=== PATIENT | male | born 1985 | race Caucasian/White ===

== ENCOUNTER 2017-05-15 08:11 | Emergency (ER) | payer BC ==
[2017-05-15 08:36] VITALS: BP 127/77
--- NOTE | 2017-05-15 08:47 | UC ---
Respiratory Complaint HPI - HPI Summary HPI Summary: cough x 2 days cough is dry , + nasal congestion, pnd no sore throat, no fever, no chills - History of Current Complaint Chief Complaint: UCRespiratory Stated Complaint: DIZZINESS,CHEST JIM,SINUSES Time Seen by Provider: 05/15/17 08:35 Hx Obtained From: Patient Onset/Duration: Gradual Onset, Lasting Days - 2, Still Present Timing: Constant Severity Initially: Moderate Severity Currently: Moderate Pain Intensity: 0 Character: Cough: Nonproductive Aggravating Factors: Exertion, Deep Breaths Alleviating Factors: Nothing Associated Signs And Symptoms: Positive: Wheezing, URI, Nasal Congestion. Negative: Fever, Chills, Pleuritic Chest Pain, Hemoptysis, Dizziness, Calf Pain , Calf Swelling, Hoarseness, Sinus Discomfort - Allergies/Home Medications Allergies/Adverse Reactions: Allergies Allergy/AdvReac Type Severity Reaction Status Date / Time No Known Allergies Allergy Verified 05/15/17 08:36 Home Medications: Home Medications Dm/Acetaminophen/Doxylamine [Night Cold-Flu Relief Liq Gel] 1 each PO DAILY [History Confirmed 05/15/17] PMH/Surg Hx/FS Hx/Imm Hx Previously Healthy: Yes - Surgical History Surgical History: None - Family History Known Family History: Negative: Diabetes - Social History Alcohol Use: Weekly Substance Use Type: None Smoking Status (MU): Heavy Every Day Tobacco Smoker Type: Cigarettes Amount Used/How Often: 1/2-3/4 PPD Length of Time of Smoking/Using Tobacco: 16 Years Have You Smoked in the Last Year: Yes - Immunization History Most Recent Influenza Vaccination: Not the 2015/2016 Season Review of Systems Constitutional: Negative Skin: Negative Eyes: Negative ENT: Nasal Discharge Respiratory: Cough Cardiovascular: Negative Gastrointestinal: Negative Genitourinary: Negative Neurovascular: Negative Musculoskeletal: Negative Is Patient Immunocompromised?: No All Other Systems Reviewed And Are Negative: Yes Physical Exam Triage Information Reviewed: Yes Appearance: Well-Appearing, No Pain Distress, Well-Nourished Vital Signs: Initial Vital Signs Temp 98.9 F 05/15/17 08:33 Pulse 92 05/15/17 08:33 Resp 16 05/15/17 08:33 BP 127/77 05/15/17 08:33 Pulse Ox 100 05/15/17 08:33 Eyes: Positive: Conjunctiva Clear ENT: Positive: Normal ENT inspection, Hearing grossly normal, Pharynx normal, Nasal drainage Neck: Positive: Supple, Nontender, No Lymphadenopathy Respiratory: Positive: Chest non-tender, Lungs clear, Normal breath sounds Cardiovascular: Positive: RRR, No Murmur, Pulses Normal Skin Exam: Normal UC Diagnostic Evaluation - Laboratory O2 Sat by Pulse Oximetry: 100 Respiratory Course/Dx - Differential Dx/Diagnosis Provider Diagnoses: viral illness Discharge - Discharge Plan Condition: Stable Disposition: HOME Patient Education Materials: Viral Syndrome (ED) Forms: *Work Release Referrals: No Primary Care Phys,NOPCP [Primary Care Provider] - If Needed
== END 2017-05-15 08:46 | disposition home or self-care (01) ==
LOC: UCCORT 08:11
DX: B34.9 Viral infection, unspecified (principal); F17.210 Nicotine dependence, cigarettes, uncomplicated
CPT/HCPCS: 99211; G0463

== ENCOUNTER 2017-07-25 12:50 | Emergency (ER) | payer BC ==
[2017-07-25 13:16] VITALS: BP 135/71
--- NOTE | 2017-07-25 14:05 | UC ---
Psychiatric Complaint HPI - HPI Summary HPI Summary: Sunday Mother was admitted to the hospital and is doing better. He has been arguing with his now. is . He has been working a lot as well. He denies any suicidal thoughts. He has no prior history of suicide attempts. No prior mental health disease. - History Of Current Complaint Chief Complaint: UCGeneralIllness Stated Complaint: STRESSED/CAN'T SLEEP OR EAT Time Seen by Provider: 07/25/17 13:46 Hx Obtained From: Patient Onset/Duration: Gradual Onset, Lasting Days Timing: Constant Severity Initially: Moderate Severity Currently: Moderate Character: Anxious Aggravating Factor(s): Recent Stress Alleviating Factor(s): Nothing Associated Signs And Symptoms: Sleep Disturbance, Appetite Change - Allergies/Home Medications Allergies/Adverse Reactions: Allergies Allergy/AdvReac Type Severity Reaction Status Date / Time No Known Allergies Allergy Verified 07/25/17 13:16 PMH/Surg Hx/FS Hx/Imm Hx Previously Healthy: Yes - Surgical History Surgical History: None - Family History Known Family History: Negative: Diabetes - Social History Occupation: Employed Full-time Alcohol Use: Weekly Substance Use Type: None Smoking Status (MU): Heavy Every Day Tobacco Smoker Type: Cigarettes Amount Used/How Often: 1/2-3/4 PPD Length of Time of Smoking/Using Tobacco: 16 Years Have You Smoked in the Last Year: Yes - Immunization History Most Recent Influenza Vaccination: Not the 2015/2016 Season Review of Systems Psychological: Anxious, Depressed All Other Systems Reviewed And Are Negative: Yes Physical Exam Triage Information Reviewed: Yes Appearance: Well-Appearing, No Pain Distress, Well-Nourished Vital Signs: Initial Vital Signs Temp 99.8 F 07/25/17 13:11 Pulse 100 07/25/17 13:11 Resp 20 07/25/17 13:11 BP 135/71 07/25/17 13:11 Pulse Ox 99 07/25/17 13:11 Vital Signs Reviewed: Yes Eyes: Positive: Conjunctiva Clear ENT: Positive: Normal ENT inspection Neck: Positive: Supple, Nontender, No Lymphadenopathy. Negative: Nuchal Rigidity Respiratory: Positive: Normal breath sounds, No respiratory distress, No accessory muscle use. Negative: Respiratory distress, Decreased breath sounds, Accessory muscle use, Crackles, Rhonchi, Stridor Cardiovascular: Positive: No Murmur, Pulses Normal, Brisk Capillary Refill Abdomen Description: Positive: No Organomegaly, Soft. Negative: Distended, Guarding Musculoskeletal: Positive: Strength Intact, ROM Intact, No Edema Neurological: Positive: Alert, Muscle Tone Normal. Negative: Fatigued, Lethargic, Unresponsive, Abnormal Muscle Tone Psychological Exam: Other - He is well groomed and has good hygeine. He makes moderately good eye contact. Logical and coherent. No stigmata of drug abuse. Affect mildly flat. Non tangential or irritated. Skin: Negative: rashes Psych Complaint Course/Dx - Course Course Of Treatment: He has a few stressful variables in his life now. He is low risk for suicide or self harm. We talk at length about options to get help and to learn some coping skills and to get things off his chest. he agrees to f/ u with [facility]. - Differential Dx/Diagnosis Provider Diagnoses: acute stress reaction Discharge - Sign-Out/Discharge Documenting (check all that apply): Discharge/Admit/Transfer - Discharge Plan Condition: Good Disposition: HOME Prescriptions: hydrOXYzine HCL TAB* [Atarax TAB 50 MG *] 50 mg PO BEDTIME PRN #5 tab PRN Reason: Sleep Patient Education Materials: Stress (ED), Anxiety (ED) Forms: *Work Release Referrals: No Primary Care Phys,NOPCP [Primary Care Provider] - Additional Instructions: Follow up with [facility] as we discussed. [phone] - Billing Disposition and Condition Condition: GOOD Disposition: HOME
== END 2017-07-25 14:13 | disposition home or self-care (01) ==
LOC: UCCORT 12:50
DX: F43.0 Acute stress reaction (principal); F17.210 Nicotine dependence, cigarettes, uncomplicated
CPT/HCPCS: 99212; G0463

== ENCOUNTER 2017-10-29 10:43 | Emergency (ER) | payer BC ==
[2017-10-29 10:57] VITALS: BP 119/70
[2017-10-29] MEDS ORDERED: Tetracaine 0.5% OPTH.SOL 4 ML* 1 DROP BTL ONE (10:58)
[2017-10-29] MEDS ORDERED: BSS OPTH.SOL* BTL ONE (10:58)
--- NOTE | 2017-10-29 11:18 | UC ---
Eye Complaint HPI - HPI Summary HPI Summary: 32-year-old patient who states that yesterday he started wearing his contact lenses after a long period. He slept overnight with them and this morning he woke up with itchy burning eyes, scant discharge on both of them, and photophobia. He denies any chills or fever, blurred vision. No previous medical history. No history of allergies to any medications. - History of Current Complaint Chief Complaint: UCEye Stated Complaint: BILATERAL EYE COMPLAINT Time Seen by Provider: 10/29/17 10:58 Hx Obtained From: Patient Onset/Duration: Sudden Onset Timing: Constant Severity Initially: Moderate Severity Currently: Moderate Pain Intensity: 6 Location of Injury: Conjunctiva Character: Dull Aggravating Factor(s): Light, Contact Lens Alleviating Factor(s): Darkness - Risk Factors Penetrating Injury Risk Factor: Negative Globe Rupture Risk Factors: Negative Acute Glaucoma Risk Factors: Negative Optic Artery Occlusion Risk Factors: Negative - Allergies/Home Medications Allergies/Adverse Reactions: Allergies Allergy/AdvReac Type Severity Reaction Status Date / Time No Known Allergies Allergy Verified 10/29/17 10:55 PMH/Surg Hx/FS Hx/Imm Hx Previously Healthy: Yes - Surgical History Surgical History: None - Family History Known Family History: Positive: None Negative: Diabetes - Social History Alcohol Use: Occasionally Substance Use Type: None Smoking Status (MU): Heavy Every Day Tobacco Smoker Type: Cigarettes Amount Used/How Often: vape Length of Time of Smoking/Using Tobacco: 16 Years Have You Smoked in the Last Year: Yes - Immunization History Most Recent Influenza Vaccination: Not the 2015/2016 Season Review of Systems Constitutional: Negative Eyes: Drainage, Eye Redness, Photophobia All Other Systems Reviewed And Are Negative: Yes Physical Exam Triage Information Reviewed: Yes Appearance: Well-Appearing, No Pain Distress, Well-Nourished Vital Signs: Initial Vital Signs Temp 98.4 F 10/29/17 10:53 Pulse 84 10/29/17 10:53 Resp 14 10/29/17 10:53 BP 119/70 10/29/17 10:53 Pulse Ox 100 10/29/17 10:53 Vital Signs Reviewed: Yes Eyes: Positive: Conjunctiva Inflamed, Other: - NAHUM, EOM negative, fluorescein exam was not done due to shortage of supplies. No foreign bodies visualized on eyelid eversion, no hyphema, subconjunctival hemorrhage. ENT: Positive: Hearing grossly normal Respiratory: Positive: Chest non-tender Cardiovascular: Positive: Pulses Normal, Brisk Capillary Refill Abdomen Description: Positive: Nontender Eye Complaint Course/Dx - Course Course Of Treatment: Conjunctival injection noted bilaterally. No presence of discharge at this point. Start Patanol eyedrops twice a day as prescribed for symptomatic relief of pruritus. Start ofloxacin drops to prevent infection due to history of contact lens exposure. The clinic does not have any supplies of fluorescein therefore test was not performed. Patient was informed of this fact and if symptoms persist despite treatment he is advised to seek care with an dispatcher service as soon as possible. - Differential Dx/Diagnosis Provider Diagnoses: Conjunctivitis Discharge - Sign-Out/Discharge Documenting (check all that apply): Patient Departure All imaging exams completed and their final reports reviewed: No Studies - Discharge Plan Condition: Stable Disposition: HOME Prescriptions: Ofloxacin 0.3%(Ophth)(Nf) [Ocuflox OPTH 0.3%(NF)] 1 drop BOTH EYES QID 7 Days # 1 btl Olopatadine 0.1% OPHTH (NF) [Patanol 0.1% OPHTH (NF)] 1 drop BOTH EYES BID PRN # 1 btl PRN Reason: Itching Patient Education Materials: Olopatadine (Into the eye), Ofloxacin (Into the eye), Conjunctivitis (ED) Referrals: [facility] [place] [facility]FERRAL [Outside] No Primary Care Phys,NOPCP [Primary Care Provider] - - Billing Disposition and Condition Condition: STABLE Disposition: Home
== END 2017-10-29 11:22 | disposition home or self-care (01) ==
LOC: UCCORT 10:43
DX: H10.9 Unspecified conjunctivitis (principal)
CPT/HCPCS: 99212; A9270-GY; G0463

== ENCOUNTER 2018-01-09 08:57 | Emergency (ER) | payer BC ==
[2018-01-09 09:11] VITALS: BP 112/87
--- NOTE | 2018-01-09 09:25 | UC ---
Shortness of Breath HPI - HPI Summary HPI Summary: Here alone - States he has had cough and congestion for the past 2 weeks. Has been taking generic dayquil and nyquil throughout without much relief. He states that recently over the past few days, his cough, sore throat have gotten worse. No fevers. Wakes up SOB and coughs for about a half hour with mucus. He is sleeping a lot more and feels generally weak. Quit smoking in October. No H/A. No hx of allergies. No rash. PMhx: none Meds: none - History of Current Complaint Chief Complaint: UCRespiratory Stated Complaint: CONGESTION, WEAKNESS Time Seen by Provider: 01/09/18 09:07 - Allergy/Home Medications Allergies/Adverse Reactions: Allergies Allergy/AdvReac Type Severity Reaction Status Date / Time No Known Allergies Allergy Verified 01/09/18 09:07 Home Medications: Home Medications Dm/PE/Acetaminophen/Doxylamine [Daytime-Nighttime Cold-Flu] 2 each PO BID PRN [History Confirmed 01/09/18] PMH/Surg Hx/FS Hx/Imm Hx Previously Healthy: Yes - Surgical History Surgical History: None - Family History Known Family History: Positive: None Negative: Diabetes - Social History Alcohol Use: Occasionally Substance Use Type: None Smoking Status (MU): Former Smoker Type: Cigarettes Amount Used/How Often: vape Length of Time of Smoking/Using Tobacco: 16 Years Have You Smoked in the Last Year: Yes When Did the Patient Quit Smoking/Using Tobacco: October - Immunization History Most Recent Influenza Vaccination: Not the 2015/2016 Season Review of Systems Constitutional: Negative Skin: Negative Eyes: Negative Respiratory: Shortness Of Breath, Cough Cardiovascular: Negative Gastrointestinal: Negative Genitourinary: Negative All Other Systems Reviewed And Are Negative: Yes Physical Exam Triage Information Reviewed: Yes Appearance: Well-Appearing, No Pain Distress Vital Signs: Initial Vital Signs Temp 98.7 F 01/09/18 09:08 Pulse 92 01/09/18 09:08 Resp 16 01/09/18 09:08 BP 112/87 01/09/18 09:08 Pulse Ox 98 01/09/18 09:08 Vital Signs Reviewed: Yes Eye Exam: Normal Eyes: Positive: Conjunctiva Clear ENT: Positive: Pharyngeal erythema, Nasal congestion, Nasal drainage, TMs normal Neck exam: Normal Neck: Positive: Supple, Nontender Respiratory: Positive: Other: - Diminished breath sounds. No W/R/R. No increase in work of breathing Cardiovascular: Positive: RRR, No Murmur Abdomen Description: Positive: Nontender, No Organomegaly, Soft Skin Exam: Normal Diagnostics - Radiology CXR Radiology Interpretation Completed By: Radiologist Summary of Radiographic Findings: No acute finding Shortness of Breath Dx - Course Course Of Treatment: This is a 32 yr old who recently quit smoking who presents with two weeks of cough, congestion and sore throat. Assessment. Nontoxic appearing. CXR: No acute finding. Plan. Recommend a decongestant such as sudafed. Would start Flonase as prescribed. Continue smoking cessation. If symptoms persist or worsen, follow up with PCP or return to urgent care - Differential Dx/Diagnosis Provider Diagnoses: Viral syndrome Discharge - Sign-Out/Discharge Documenting (check all that apply): Patient Departure All imaging exams completed and their final reports reviewed: Yes - Discharge Plan Condition: Good Disposition: HOME Prescriptions: Fluticasone NASAL SPRAY 50MCG* [Flonase NASAL SPRAY 50MCG*] 2 spray BOTH NARES DAILY #1 btl Patient Education Materials: Viral Syndrome (ED) Referrals: No Primary Care Phys,NOPCP [Primary Care Provider] - Additional Instructions: Recommend a decongestant such as sudafed Would start Flonase as prescribed Continue smoking cessation If symptoms persist or worsen, follow up with PCP or return to urgent care - Billing Disposition and Condition Condition: GOOD Disposition: Home
== END 2018-01-09 09:58 | disposition home or self-care (01) ==
LOC: UCCORT 08:57
DX: B34.9 Viral infection, unspecified (principal); Z87.891 Personal history of nicotine dependence
CPT/HCPCS: 71046; 99212; G0463

== ENCOUNTER 2018-05-28 10:23 | Emergency (ER) | payer BC ==
[2018-05-28 11:17] VITALS: BP 123/66
--- NOTE | 2018-05-28 11:41 | UC ---
UC General HPI - HPI Summary HPI Summary: pt c/o a gassy-bloated discomfort in his R lower abdomen since Sunday am. He noted a little red blood on toilet tissue after a BM but that was only once. No pain with the BM. No fever, n/v/d/dysuria, flank pain or testicular pain. no hx IBD. no anorexia. good oral intake. the discomfort has improved since the onset; however, he just does not feel well. - History of Current Complaint Chief Complaint: UCGeneralIllness Stated Complaint: ABDOMINAL PAIN Time Seen by Provider: 05/28/18 11:31 Hx Obtained From: Patient Timing: Constant Pain Intensity: 2 Associated Signs & Symptoms: Negative: Dysuria, Fever - Allergy/Home Medications Allergies/Adverse Reactions: Allergies Allergy/AdvReac Type Severity Reaction Status Date / Time No Known Allergies Allergy Verified 05/28/18 11:10 Home Medications: Home Medications NK [No Home Medications Reported] 05/28/18 [History Confirmed 05/28/18] PMH/Surg Hx/FS Hx/Imm Hx Previously Healthy: Yes - Surgical History Surgical History: None - Family History Known Family History: Positive: None Negative: Diabetes - Social History Lives: With Family Alcohol Use: Occasionally Substance Use Type: None Smoking Status (MU): Former Smoker Type: Cigarettes Amount Used/How Often: vape Length of Time of Smoking/Using Tobacco: 16 Years Have You Smoked in the Last Year: Yes When Did the Patient Quit Smoking/Using Tobacco: October 2017 - Immunization History Most Recent Influenza Vaccination: Not the 2016/2016 Season Review of Systems All Other Systems Reviewed And Are Negative: Yes Physical Exam Triage Information Reviewed: Yes Appearance: Well-Appearing Vital Signs: Initial Vital Signs Temp 97.6 F 05/28/18 11:10 Pulse 77 05/28/18 11:10 Resp 15 05/28/18 11:10 BP 123/66 05/28/18 11:10 Pulse Ox 100 05/28/18 11:10 Vital Signs Reviewed: Yes Eyes: Positive: Conjunctiva Clear ENT: Positive: Normal ENT inspection Neck: Positive: Supple, Nontender Respiratory: Positive: Lungs clear, Normal breath sounds, No respiratory distress Cardiovascular: Positive: RRR, No Murmur Abdomen Description: Positive: Other: - Flat. Soft. Tender on deep palpation in RLQ but no rebound. No mass/HSM or cva tendernes. Rectal exam refused by pt. Bowel Sounds: Positive: Hypoactive Male Genital Exam: Positive: Other - exam refused by pt. Musculoskeletal: Positive: ROM Intact Neurological: Positive: Alert Psychological: Positive: Age Appropriate Behavior Skin Exam: Normal Course/Dx - Course Course Of Treatment: [facility] called, report given to Dr Garnica. He was advised of pt have rlq discomfort, bloated-gassy plus tender on exam. also advised pt refusing rectal and gu exam. - Differential Dx - Multi-Symptom Differential Diagnoses: Other - No hx IBD. No concern for pyelonephritis and diverticular dz doubtful but meckles diverticulitis still possible. rectal and gu exams were refused. pt has RLQ tenderness on examthus will need to r/o appendicitis. testicular pathology less likley but unable to exclude because pt refused the gu exam. - Diagnoses Provider Diagnosis: RLQ abdominal pain Discharge - Sign-Out/Discharge Documenting (check all that apply): Patient Departure All imaging exams completed and their final reports reviewed: No Studies - Discharge Plan Condition: Stable Disposition: TRANS HIGHER LVL OF CARE FAC Referrals: No Primary Care Phys,NOPCP [Primary Care Provider] - Additional Instructions: LEAVE HERE AND GO DIRECTLY TO THE [facility] DISCUSSED - Billing Disposition and Condition Condition: STABLE Disposition: Trans Higher Lvl of Care Fac
== END 2018-05-28 12:03 | disposition short-term general hospital (02) ==
LOC: UCCORT 10:23
DX: R10.31 Right lower quadrant pain (principal); Z87.891 Personal history of nicotine dependence
CPT/HCPCS: 99212; G0463